=== PATIENT | male | born 1960 | race Caucasian/White ===

== ENCOUNTER 2023-09-29 23:41 | Emergency (ER) | payer MEDICAID ==
[~2023-09-29] VITALS: Ht 175.3 cm; Wt 86.0 kg
[~2023-09-29 23:41] MED LIST: ALLO100T MT; CARV6.2548 PO; CLOP75TA33 PO; COLC0.6C3 PO; IBUP-2029 MT; LISI10TA26 MT
[2023-09-29 23:45] VITALS: O2SAT 97
[2023-09-30 00:44] LABS: BASOPHILS % 0.5 % (0.0-2.0); EOSINOPHILS % 0.1 % (0.0-5.0); HEMATOCRIT. 37.5 % (42.0-52.0); HEMOGLOBIN. 12.7 g/dL (14.0-18.0); LYMPHOCYTES % 15.9 % (20.0-50.0); MEAN CORPUSCULAR HEMOGLOBIN 32.8 pg (28.0-32.0); MEAN CORPUSCULAR HGB CONC 33.9 g/dL (31.0-37.0); MEAN CORPUSCULAR VOLUME 96.6 fL (80.0-94.0); MEAN PLATELET VOLUME 7.5 fl (7.4-10.4); MONOCYTES % 7.2 % (2.0-8.0); NEUTROPHILS % 76.3 % (40.0-76.0); PLATELET 255 x1000/uL (130-400); RED BLOOD CELL COUNT 3.88 mill/uL (4.7-6.1); RED CELL DISTRIBUTION WIDTH 14.6 % (11.6-14.6); WHITE BLOOD COUNT 7.9 x1000/uL (4.5-11.0)
[2023-09-30] MEDS: KETOROLAC 30MG/ML VIAL IM STA (00:44)
[2023-09-30] MEDS: ONDANSETRON 4MG ODT PO STA (00:45)
[2023-09-30 00:49] LABS: CHLORIDE 109 mEq/L (98-107); POTASSIUM 3.4 mEq/L (3.5-5.1); SODIUM 142 mEq/L (136-145)
[2023-09-30 00:50] LABS: CARBON DIOXIDE 26 mEq/L (21-32)
[2023-09-30 00:51] LABS: CALCIUM 9.5 mg/dL (8.7-10.4)
[2023-09-30 00:55] LABS: GLUCOSE 114 mg/dL (70-105); URIC ACID 7.1 mg/dL (3.7-9.2)
[2023-09-30 00:56] LABS: UREA NITROGEN BLOOD 20 mg/dL (9-23)
[2023-09-30 04:00] VITALS: BP 135/77; PULSE 89; RESP 18; TEMP 98.9
[2023-09-30] MEDS ORDERED: ONDA4TAB50 MT (04:05)
[2023-09-30] MEDS ORDERED: IBUP-2029 MT (04:05)
== END 2023-09-30 04:15 | disposition home or self-care (01) ==
LOC: ER 23:41
DX: M79.671 Pain in right foot (principal); R11.10 Vomiting, unspecified; I10 Essential (primary) hypertension; E78.00 Pure hypercholesterolemia, unspecified
CPT/HCPCS: 99283; 80048; 84550; 85025; 36415; Z7610 ×2

== ENCOUNTER 2024-04-25 20:03 | Inpatient (IN) | payer BC, MEDICAID ==
[~2024-04-25] VITALS: Ht 177.8 cm; Wt 101.6 kg
[~2024-04-25 20:03] MED LIST changes: +ASPI-1497 PO; +ONDA4TAB50 MT
[2024-04-25 20:11] VITALS: O2SAT 97
[2024-04-25] MEDS: ACETAMINOPHEN 325MG TABLET PO ONE (20:45)
[2024-04-25 20:56] LABS: BASOPHILS % 0.2 % (0.0-2.0); EOSINOPHILS % 0.1 % (0.0-5.0); HEMATOCRIT. 44.3 % (42.0-52.0); MEAN CORPUSCULAR HEMOGLOBIN 30.9 pg (28.0-32.0); MEAN CORPUSCULAR HGB CONC 33.9 g/dL (31.0-37.0); MEAN CORPUSCULAR VOLUME 91.1 fL (80.0-94.0); MEAN PLATELET VOLUME 7.1 fl (7.4-10.4); MONOCYTES % 5.3 % (2.0-8.0); NEUTROPHILS % 82.4 % (40.0-76.0); PLATELET 269 x1000/uL (130-400); RED BLOOD CELL COUNT 4.87 mill/uL (4.7-6.1); RED CELL DISTRIBUTION WIDTH 15.4 % (11.6-14.6); WHITE BLOOD COUNT 9.8 x1000/uL (4.5-11.0)
[2024-04-25 21:08] LABS: CHLORIDE 111 mEq/L (98-107); POTASSIUM 3.6 mEq/L (3.5-5.1); SODIUM 146 mEq/L (136-145)
[2024-04-25 21:09] LABS: CARBON DIOXIDE 25 mEq/L (21-32)
[2024-04-25 21:10] LABS: CALCIUM 9.5 mg/dL (8.7-10.4)
[2024-04-25 21:15] LABS: CREATININE 1.1 mg/dL (0.6-1.3); GLUCOSE 141 mg/dL (70-105); UREA NITROGEN BLOOD 17 mg/dL (9-23)
[2024-04-25 21:16] LABS: D-DIMER 0.46 mg/L FEU (<0.50); INR 0.9; PARTIAL THROMBOPLASTIN TIME 24.3 sec (23.4-31.0); PROTHROMBIN TIME 10.2 sec (9.6-11.0); TROPONIN I HIGH SENSITIVITY < 4 ng/L (3.0-53)
[2024-04-25] MEDS: IOHEXOL-350 100 ML BOTTLE ONE (23:14)
[2024-04-26 00:08] LABS: TROPONIN I HIGH SENSITIVITY < 4 ng/L (3.0-53)
[2024-04-26 04:28] VITALS: BP 155/92; PULSE 80; RESP 18; TEMP 36.2512
[2024-04-26] MEDS: HYDROCODONE/ACETAMINOPHEN 10/325MG TABLET PO PRN (04:42)
[2024-04-26] MEDS ORDERED: NALOXONE HCL 0.4MG/ML VIAL IV PRN (04:45)
[2024-04-26] MEDS: NICOTINE 14MG PATCH TD PRN (04:57)
[2024-04-26 06:32] LABS: CARBON DIOXIDE 25 mEq/L (21-32); CHLORIDE 114 mEq/L (98-107); SODIUM 143 mEq/L (136-145)
[2024-04-26 06:38] LABS: BASOPHILS % 0.3 % (0.0-2.0); CREATININE 1.1 mg/dL (0.6-1.3); EOSINOPHILS % 0.6 % (0.0-5.0); GLUCOSE 110 mg/dL (70-105); HEMATOCRIT. 39.8 % (42.0-52.0); HEMOGLOBIN. 13.4 g/dL (14.0-18.0); LYMPHOCYTES % 21.9 % (20.0-50.0); MEAN CORPUSCULAR HEMOGLOBIN 30.8 pg (28.0-32.0); MEAN CORPUSCULAR HGB CONC 33.6 g/dL (31.0-37.0); MEAN CORPUSCULAR VOLUME 91.5 fL (80.0-94.0); MEAN PLATELET VOLUME 7.7 fl (7.4-10.4); MONOCYTES % 12.1 % (2.0-8.0); NEUTROPHILS % 65.1 % (40.0-76.0); PLATELET 211 x1000/uL (130-400); RED BLOOD CELL COUNT 4.35 mill/uL (4.7-6.1); RED CELL DISTRIBUTION WIDTH 15.4 % (11.6-14.6); TRIGLYCERIDE 231 mg/dL (0-150); UREA NITROGEN BLOOD 23 mg/dL (9-23)
[2024-04-26 06:39] LABS: LDL CHOLESTEROL 122 mg/dL (5-100)
[2024-04-26 06:40] LABS: CHOLESTEROL 194 mg/dL (<200); HDL CHOLESTEROL 46 mg/dL (>55)
[2024-04-26 06:45] LABS: TROPONIN I HIGH SENSITIVITY < 4 ng/L (3.0-53)
[2024-04-26 06:55] LABS: HEPATITIS B SURFACE ANTIGEN NEGATIVE (Negative)
[2024-04-26 07:15] LABS: HEPATITIS C AB NON REACTIVE (Neg) (Negative)
[2024-04-26 08:00] VITALS: BP 141/91; PULSE 80; RESP 18; TEMP 36.50292; O2SAT 100
[2024-04-26] MEDS ORDERED: ASPIRIN 325MG TABLET PO SCH (09:00)
[2024-04-26] MEDS: ASPIRIN 81MG TABLET PO SCH (09:47)
[2024-04-26] MEDS: KETOROLAC 15MG/ML VIAL IV PRN (10:24)
[2024-04-26 12:00] VITALS: BP 145/90; PULSE 80; RESP 16; TEMP 36.44736; O2SAT 98
[2024-04-26] MEDS: CLOPIDOGREL 75MG TABLET PO SCH (14:30)
[2024-04-26 16:00] VITALS: BP 151/87; PULSE 86; RESP 18; TEMP 36.50292; O2SAT 96
[2024-04-26] MEDS: AMLODIPINE 10MG TABLET PO SCH (17:30)
[2024-04-26 20:00] VITALS: BP 159/101; PULSE 77; RESP 18; TEMP 36.61404; O2SAT 96
[2024-04-26] MEDS: ATORVASTATIN CALCIUM 40MG TABLET PO SCH (20:58)
[2024-04-27] VITALS: BP 106/53; PULSE 63; RESP 20; TEMP 36.61404; O2SAT 97
[2024-04-27 04:00] VITALS: BP 123/95; PULSE 80; RESP 18; TEMP 36.50292; O2SAT 97
[2024-04-27 08:06] VITALS: BP 144/87; PULSE 75; RESP 19; TEMP 36.55848; O2SAT 97
== END 2024-04-27 10:30 | disposition left against medical advice (07) | DRG 303 ==
LOC: ER 20:03 → 7WST 04-26 04:12
PROVIDERS: ADMIT Internal Medicine; ATTEND Internal Medicine
DX: I25.110 Atherosclerotic heart disease of native coronary artery with unstable angina pectoris (principal); E78.00 Pure hypercholesterolemia, unspecified; E78.5 Hyperlipidemia, unspecified; Z53.29 Procedure and treatment not carried out because of patient's decision for other reasons; I10 Essential (primary) hypertension; F17.210 Nicotine dependence, cigarettes, uncomplicated; I25.2 Old myocardial infarction; Z88.5 Allergy status to narcotic agent; Z95.5 Presence of coronary angioplasty implant and graft; Z88.8 Allergy status to other drugs, medicaments and biological substances; Z79.899 Other long term (current) drug therapy; Z91.148 Patient's other noncompliance with medication regimen for other reason
CPT/HCPCS: 36415; 70486; 71045; 71275; 80048; 80061; 83880; 84484; 85025; 85379; 86705; 86850; 86900; 87340; 93005; 99285; J1885; Q9967

== ENCOUNTER 2025-03-01 22:00 | Inpatient (IN) | payer OTHER ==
[~2025-03-01] VITALS: Ht 175.3 cm; Wt 102.1 kg
[~2025-03-01 22:00] MED LIST changes: -ALLO100T MT; +ASPI-1406 PO; -ASPI-1497 PO; -CARV6.2548 PO; +CLOP-31 PO; -CLOP75TA33 PO; -COLC0.6C3 PO; +COR6 PO; -IBUP-2029 MT; +LIP40 PO; -LISI10TA26 MT; +LISI10TA26 PO; -ONDA4TAB50 MT; +P20 PO
[2025-03-01 22:07] VITALS: O2SAT 95
[2025-03-01] MEDS: NITROGLYCERIN 0.4MG TABLET SL SL PRN (23:00)
[2025-03-01] MEDS: ASPIRIN 81MG TABLET PO ONE (23:00)
[2025-03-01 23:14] LABS: BASOPHILS % 0.4 % (0.0-2.0); EOSINOPHILS % 1.6 % (0.0-5.0); HEMATOCRIT. 43.9 % (42.0-52.0); HEMOGLOBIN. 14.1 g/dL (14.0-18.0); LYMPHOCYTES % 25.6 % (20.0-50.0); MEAN PLATELET VOLUME 7.5 fl (7.4-10.4); MONOCYTES % 11.5 % (2.0-8.0); NEUTROPHILS % 60.9 % (40.0-76.0); PLATELET 301 x1000/uL (130-400); RED BLOOD CELL COUNT 4.67 mill/uL (4.7-6.1); RED CELL DISTRIBUTION WIDTH 13.7 % (11.6-14.6)
[2025-03-01 23:27] LABS: INR 0.9
[2025-03-01 23:30] LABS: CREATININE 1.3 mg/dL (0.6-1.3); UREA NITROGEN BLOOD 23 mg/dL (9-23)
[2025-03-01 23:32] LABS: ASPARTATE AMINOTRANSFERASE 18 IU/L (<34); BILIRUBIN DIRECT < 0.1 mg/dL (<=3.0); BILIRUBIN TOTAL 0.2 mg/dL (0.1-1.0); PROTEIN TOTAL 6.4 g/dL (6.0-8.3); TROPONIN I HIGH SENSITIVITY < 4 ng/L (3.0-53)
[2025-03-02] MEDS: IOHEXOL-350 100 ML BOTTLE ONE (00:14)
[2025-03-02] MEDS: HYDROCODONE/ACETAMINOPHEN 5/325MG TABLET PO SCH (00:39)
[2025-03-02 01:07] LABS: TROPONIN I HIGH SENSITIVITY < 4 ng/L (3.0-53)
[2025-03-02 02:00] VITALS: BP 137/91; PULSE 74; RESP 18; TEMP 36.5; O2SAT 97
[2025-03-02 02:58] VITALS: BP 137/91; PULSE 74; RESP 18; TEMP 36.5292
[2025-03-02] MEDS ORDERED: ONDANSETRON HCL 4MG/2ML INJ IV PRN (03:45)
[2025-03-02] MEDS ORDERED: CLONIDINE 0.1MG TABLET PO PRN (03:45)
[2025-03-02] MEDS ORDERED: HYDROCODONE/ACETAMINOPHEN 10/325MG TABLET PO PRN (03:45)
[2025-03-02 04:00] VITALS: BP 137/91; PULSE 74; RESP 18; TEMP 36.5; O2SAT 97
[2025-03-02] MEDS: LORAZEPAM 0.5MG TABLET PO PRN (05:24)
[2025-03-02 08:00] VITALS: BP 140/84; PULSE 61; RESP 20; TEMP 37.4; O2SAT 97
[2025-03-02] MEDS: ENOXAPARIN 30MG/0.3ML SYR SUBCUT SCH (08:47)
[2025-03-02] MEDS: PREDNISONE 20MG TABLET PO SCH (10:15)
[2025-03-02] MEDS: ASPIRIN 81MG EC TABLET PO SCH (10:15)
[2025-03-02] MEDS ORDERED: CARVEDILOL 6.25 MG TABLET PO SCH (10:15)
[2025-03-02] MEDS: LISINOPRIL 10MG TABLET PO SCH (10:15)
[2025-03-02] MEDS: CLOPIDOGREL 75MG TABLET PO SCH (10:15)
[2025-03-02] MEDS ORDERED: NALOXONE HCL 0.4MG/ML VIAL IV PRN (10:30)
[2025-03-02 12:16] VITALS: BP 148/58; PULSE 67; RESP 20; TEMP 99.6
[2025-03-02 12:19] VITALS: BP 148/59; PULSE 67; RESP 20; TEMP 37.6; O2SAT 98
[2025-03-02] MEDS ORDERED: ATORVASTATIN CALCIUM 40MG TABLET PO SCH (21:00)
== END 2025-03-02 12:40 | disposition home or self-care (01) | DRG 198 ==
LOC: ER 22:00 → EDBEDREQDT 03-02 00:44 → EDBEDREQ 03-02 00:44 → EDBEDREQTM 03-02 00:44 → 7WST 03-02 01:58
PROVIDERS: ADMIT Internal Medicine; ATTEND Internal Medicine
DX: I25.110 Atherosclerotic heart disease of native coronary artery with unstable angina pectoris (principal); Z59.00 Homelessness unspecified; F41.9 Anxiety disorder, unspecified; I10 Essential (primary) hypertension; E78.5 Hyperlipidemia, unspecified; M10.9 Gout, unspecified; E11.9 Type 2 diabetes mellitus without complications; F17.210 Nicotine dependence, cigarettes, uncomplicated; Z79.82 Long term (current) use of aspirin; Z95.5 Presence of coronary angioplasty implant and graft; Z88.5 Allergy status to narcotic agent; Z79.899 Other long term (current) drug therapy; Z79.02 Long term (current) use of antithrombotics/antiplatelets; I25.2 Old myocardial infarction
CPT/HCPCS: 36415; 71045; 71275; 80048; 80076; 83735; 83880; 84484; 85025; 85379; 93005; 99285; J1650; J7512; Q9967